=== PATIENT | female | born 1990 | race Caucasian/White ===

== ENCOUNTER → 2016-09-01 | Outpatient (CLI) | payer BC | END | disposition home or self-care (01) | LOC: LAB 14:07 | DX: E88.81 Metabolic syndrome and other insulin resistance (principal) ==

== ENCOUNTER → 2016-11-13 | Outpatient (CLI) | payer BC | END | disposition home or self-care (01) | LOC: LAB 14:00 | DX: N97.0 Female infertility associated with anovulation (principal) ==

== ENCOUNTER → 2016-12-31 | Outpatient (CLI) | payer BC | END | disposition home or self-care (01) | LOC: LAB 09:15 | DX: N97.9 Female infertility, unspecified (principal) ==

== ENCOUNTER → 2017-02-01 | Outpatient (CLI) | payer BC | END | disposition home or self-care (01) | LOC: LAB 07:38 | DX: N97.9 Female infertility, unspecified (principal) ==

== ENCOUNTER 2017-02-11 06:26 | Emergency (ER) | payer OTHER ==
[~2017-02-11] VITALS: Ht 165.1 cm; Wt 127.0 kg
[2017-02-11] MEDS ORDERED: METFORMIN HCL500 MG PO (06:32)
[2017-02-11 07:03] LABS: BASO # 0.1 10*3/uL (0.0-0.1); BASO % 0.6 % (0.0-1.0); EOS # 0.4 10*3/uL (0.0-0.4); EOS % 3.7 % (1.0-4.0); HEMATOCRIT 38.8 % (37.0-47.0); HEMOGLOBIN 12.4 g/dl (12.0-16.0); LYMPH # 2.6 10*3/uL (1.3-4.4); MEAN CELL VOLUME 85.7 fl (81.0-99.0); MEAN CORPUSCULAR HGB 27.4 pg (27.0-31.0); MEAN PLATELET VOLUME 11.7 fl (9.6-12.3); MONO # 0.8 10*3/uL (0.1-1.0); NEUT # 6.4 10*3/uL (2.3-7.9); NEUT % 62.4 % (47.0-73.0); PLATELET COUNT AUTOMATED 235 10*3/uL (130-400); RED BLOOD COUNT 4.53 10*6/uL (4.10-5.10); RED CELL DISTRI WIDTH 13.2 % (0-14.5); WHITE BLOOD COUNT 10.3 10*3/uL (4.8-10.8)
[2017-02-11 07:11] LABS: BILIRUBIN NEGATIVE (NEGATIVE); BLOOD NEGATIVE (NEGATIVE); CLARITY SL CLOUDY (CLEAR); COLOR YELLOW (YELLOW); GLUCOSE NEGATIVE (NEGATIVE); KETONE NEGATIVE (NEGATIVE); LEUKO ESTERASE NEGATIVE (NEGATIVE); NITRITE NEGATIVE (NEGATIVE); PROTEIN NEGATIVE (NEGATIVE); UROBILINOGEN 0.2 E.U./dl (0.2-1.0)
[2017-02-11 07:15] LABS: ALBUMIN 3.4 gm/dl (3.1-4.5); ALKALINE PHOSPHATASE 54 U/L (45-117); BILIRUBIN, TOTAL 0.3 mg/dl (0.2-1.0); BUN 13 mg/dl (7-24); CARBON DIOXIDE 24 mmol/L (21-32); CHLORIDE 107 mmol/L (98-107); EST GLOM FILT AFRICAN AMERICAN > 60 ml/min; GLUCOSE 102 mg/dL (65-99); SGOT/AST 13 IU/L (3-35); SGPT/ALT 23 U/L (12-78); SODIUM 144 mmol/L (136-145)
[2017-02-11 07:17] LABS: B-hCG (QUALITATIVE) NEGATIVE (NEGATIVE)
[2017-02-11 07:32] LABS: BACTERIA TRACE; URINE REFLEX COMMENT NO (NO); WBC 0-2 wbc/hpf (0-5)
== END 2017-02-11 08:29 | disposition home or self-care (01) ==
LOC: ED 06:26
PROVIDERS: Emergency Medicine
DX: R10.11 Right upper quadrant pain (principal); Z88.1 Allergy status to other antibiotic agents; Z88.8 Allergy status to other drugs, medicaments and biological substances

== ENCOUNTER → 2017-02-21 | Outpatient (CLI) | payer OTHER ==
[~2017-02-21] MED LIST: METFORMIN HCL500 MG PO
== END | disposition home or self-care (01) ==
LOC: US 08:51
DX: K76.0 Fatty (change of) liver, not elsewhere classified (principal); R10.11 Right upper quadrant pain

== ENCOUNTER → 2017-03-13 | Outpatient (CLI) | payer OTHER | END | disposition home or self-care (01) | LOC: LAB 12:22 | DX: N97.0 Female infertility associated with anovulation (principal) ==

== ENCOUNTER → 2017-03-26 | Outpatient (CLI) | payer OTHER ==
[2017-03-26 07:51] LABS: BASO % 0.5 % (0.0-1.0); EOS # 0.3 10*3/uL (0.0-0.4); EOS % 2.8 % (1.0-4.0); HEMATOCRIT 38.7 % (37.0-47.0); HEMOGLOBIN 12.2 g/dl (12.0-16.0); LYMPH # 3.2 10*3/uL (1.3-4.4); LYMPH % 36.8 % (27.0-41.0); MEAN CELL VOLUME 84.5 fl (81.0-99.0); MEAN CORPUSCULAR HGB 26.6 pg (27.0-31.0); MEAN CORPUSCULAR HGB CONC 31.5 g/dl (33.0-37.0); MEAN PLATELET VOLUME 11.9 fl (9.6-12.3); MONO # 0.8 10*3/uL (0.1-1.0); MONO % 8.6 % (3.0-9.0); NEUT # 4.5 10*3/uL (2.3-7.9); NEUT % 51.2 % (47.0-73.0); PLATELET COUNT AUTOMATED 254 10*3/uL (130-400); RED BLOOD COUNT 4.58 10*6/uL (4.10-5.10); RED CELL DISTRI WIDTH 13.2 % (0-14.5); WHITE BLOOD COUNT 8.8 10*3/uL (4.8-10.8)
[2017-03-26 08:20] LABS: ALBUMIN 3.6 gm/dl (3.1-4.5); ALKALINE PHOSPHATASE 55 U/L (45-117); BILIRUBIN, TOTAL 0.3 mg/dl (0.2-1.0); BUN 14 mg/dl (7-24); CARBON DIOXIDE 24 mmol/L (21-32); CHLORIDE 108 mmol/L (98-107); CHOLESTEROL 177 mg/dL (<200); EST GLOM FILT AFRICAN AMERICAN > 60 ml/min; GLUCOSE 106 mg/dL (65-99); HDL CHOLESTEROL 34 mg/dl (40-60); LDL CHOLESTEROL 124 mg/dL (9-159); POTASSIUM 3.8 mmol/L (3.5-5.1); SGOT/AST 14 IU/L (3-35); SGPT/ALT 22 U/L (12-78); SODIUM 143 mmol/L (136-145); TOTAL PROTEIN 7.2 gm/dL (6.4-8.2); TRIGLYCERIDES 95 mg/dl (<150); VLDL CHOLESTEROL 19 mg/dL (6-40)
[2017-03-26 08:27] LABS: THYROID STIM HORMONE (HS) 0.502 uIU/ml (0.358-4.75)
== END | disposition home or self-care (01) ==
LOC: LAB 07:11
PROVIDERS: Internal Medicine
DX: E66.09 Other obesity due to excess calories (principal)

== ENCOUNTER → 2017-04-23 | Outpatient (CLI) | payer OTHER | END | disposition home or self-care (01) | LOC: US 07:05 | DX: N91.2 Amenorrhea, unspecified (principal) ==

== ENCOUNTER → 2017-06-01 | Outpatient (CLI) | payer OTHER | END | disposition home or self-care (01) | LOC: LAB 18:00 | DX: N91.2 Amenorrhea, unspecified (principal) ==

== ENCOUNTER → 2017-10-05 | Outpatient (CLI) | payer OTHER ==
[2017-10-05 08:02] LABS: ALBUMIN 3.9 gm/dl (3.1-4.5); ALKALINE PHOSPHATASE 57 U/L (45-117); BUN 12 mg/dl (7-24); CHLORIDE 105 mmol/L (98-107); CREATININE 0.77 mg/dL (0.55-1.02); FREE T4 1.04 ng/dl (0.76-1.46); POTASSIUM 3.9 mmol/L (3.5-5.1); SGOT/AST 11 IU/L (3-35); SGPT/ALT 24 U/L (12-78); SODIUM 141 mmol/L (136-145); TOTAL PROTEIN 7.4 gm/dL (6.4-8.2)
[2017-10-05 08:23] LABS: RUBELLA IgG ANTIBODY 112.1 IU/mL (>10)
[2017-10-06 08:09] LABS: DHEA SULFATE 190.5 ug/dL (84.8-378.0)
== END | disposition home or self-care (01) ==
LOC: LAB 06:48
PROVIDERS: Pediatrics
DX: E28.2 Polycystic ovarian syndrome (principal); E03.9 Hypothyroidism, unspecified; Z31.41 Encounter for fertility testing

== ENCOUNTER → 2017-10-22 | Outpatient (CLI) | payer OTHER | END | disposition home or self-care (01) | LOC: LAB 15:22 | DX: Z32.00 Encounter for pregnancy test, result unknown (principal) ==

== ENCOUNTER → 2017-10-23 | Outpatient (CLI) | payer OTHER | END | disposition home or self-care (01) | LOC: RAD 01:39 | DX: Z31.41 Encounter for fertility testing (principal) ==

== ENCOUNTER → 2018-01-01 | Outpatient (CLI) | payer OTHER ==
[2018-01-01 09:04] LABS: BASO # 0.1 10*3/uL (0.0-0.1); BASO % 0.6 % (0.0-1.0); EOS # 0.4 10*3/uL (0.0-0.4); EOS % 3.4 % (1.0-4.0); LYMPH # 4.1 10*3/uL (1.3-4.4); LYMPH % 37.3 % (27.0-41.0); MEAN CELL VOLUME 85.5 fl (81.0-99.0); MEAN CORPUSCULAR HGB 26.5 pg (27.0-31.0); MEAN PLATELET VOLUME 11.6 fl (9.6-12.3); MONO # 0.9 10*3/uL (0.1-1.0); MONO % 8.3 % (3.0-9.0); NEUT # 5.5 10*3/uL (2.3-7.9); NEUT % 50.2 % (47.0-73.0); PLATELET COUNT AUTOMATED 257 10*3/uL (130-400); RED BLOOD COUNT 4.91 10*6/uL (4.10-5.10); RED CELL DISTRI WIDTH 14.1 % (0-14.5)
[2018-01-01 09:29] LABS: ALBUMIN 3.6 gm/dl (3.1-4.5); ALKALINE PHOSPHATASE 56 U/L (45-117); BUN 15 mg/dl (7-24); CHLORIDE 106 mmol/L (98-107); SGOT/AST 14 IU/L (3-35); SGPT/ALT 29 U/L (12-78); SODIUM 141 mmol/L (136-145); TOTAL PROTEIN 7.4 gm/dL (6.4-8.2)
== END | disposition home or self-care (01) ==
LOC: LAB 08:30
PROVIDERS: Nurse Practitioner Family
DX: L40.9 Psoriasis, unspecified (principal)

== ENCOUNTER → 2018-03-26 | Outpatient (CLI) | payer OTHER | END | disposition home or self-care (01) | LOC: LAB 14:24 | DX: N91.2 Amenorrhea, unspecified (principal) ==

== ENCOUNTER → 2018-09-09 | Outpatient (CLI) | payer OTHER ==
[2018-09-09 17:54] LABS: ALBUMIN 3.7 gm/dl (3.1-4.5); ALKALINE PHOSPHATASE 60 U/L (45-117); BILIRUBIN, DIRECT < 0.1 mg/dL (0.0-0.2); BUN 14 mg/dl (7-24); CHLORIDE 104 mmol/L (98-107); CREATININE 0.85 mg/dL (0.55-1.02); PHOSPHOROUS 4.2 mg/dL (2.5-4.9); POTASSIUM 3.9 mmol/L (3.5-5.1); SGOT/AST 36 IU/L (3-35); SGPT/ALT 67 U/L (12-78); SODIUM 139 mmol/L (136-145); TOTAL PROTEIN 7.9 gm/dL (6.4-8.2)
== END | disposition home or self-care (01) ==
LOC: LAB 16:34
PROVIDERS: Pediatrics
DX: E16.8 Other specified disorders of pancreatic internal secretion (principal)

== ENCOUNTER → 2019-05-16 | Outpatient (CLI) | payer OTHER | END | disposition home or self-care (01) | LOC: RESCLI 10:52 | DX: S49.91XA Unspecified injury of right shoulder and upper arm, initial encounter (principal); E66.09 Other obesity due to excess calories; E28.2 Polycystic ovarian syndrome; L40.9 Psoriasis, unspecified; M75.41 Impingement syndrome of right shoulder; J06.9 Acute upper respiratory infection, unspecified; J02.9 Acute pharyngitis, unspecified; B96.89 Other specified bacterial agents as the cause of diseases classified elsewhere; Z68.42 Body mass index [BMI] 45.0-49.9, adult; Z79.899 Other long term (current) drug therapy ==

== ENCOUNTER → 2020-06-14 | Outpatient (CLI) | payer OTHER | END | disposition home or self-care (01) | LOC: LAB 12:46 | PROVIDERS: ATTEND Obstetrics & Gynecology Reproductive Endocrinology | DX: Z32.00 Encounter for pregnancy test, result unknown (principal) ==